=== PATIENT | male | born 2000 | race Caucasian/White ===

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

== ENCOUNTER 2019-09-22 15:37 | Emergency (ER) | payer SELFPAY ==
--- NOTE | 2019-09-22 15:58 | PDOC ---
History of Present Illness - General Chief Complaint: Cold Symptoms Stated Complaint: COLD SYMPTOMS/WEAKNESS Time Seen by Provider: 09/22/19 15:58 History Source: Patient - History of Present Illness Initial Comments: 09/22/19 16:10 Chief complaint: Cough, vomiting Patient is a healthy 19-year-old male who states he has had a cough for about a week, now has vomiting and diarrhea since yesterday. Questionable fever. Patient states she vomited at least 10 times today, diarrhea 5 times, states she urinated but unable to keep anything down. GENERAL/CONSTITUTIONAL: No fever, weakness. dizziness HEAD, EYES, EARS, NOSE AND THROAT: No change in vision. No ear pain or discharge. + sore throat. CARDIOVASCULAR: No chest pain RESPIRATORY: No shortness of breath, +cough GASTROINTESTINAL: + pain, nausea, vomiting, diarrhea GENITOURINARY: No dysuria MUSCULOSKELETAL: No neck or back pain SKIN: No rash NEUROLOGIC: No headache, vertigo, loss of consciousness, or loss of sensation. GENERAL: The patient is awake, alert, and fully oriented, in no acute distress. HEAD: Normal with no signs of trauma. EYES: Pupils equal, round and reactive to light, sclera anicteric, conjunctiva clear. ENT: pharynx: Mild erythema, no exudate, uvula midline NECK: supple CHEST: clear, nontender, rr ABD: soft, generalized tenderness, no focal tenderness, no guarding BACK: no tenderness or signs of injury EXTREMITIES: Normal range of motion, no edema. NEUROLOGICAL: Normal speech, normal gait. SKIN: Warm, Dry Past History - Past Medical History Allergies/Adverse Reactions: Allergies Allergy/AdvReac Type Severity Reaction Status Date / Time No Known Allergies Allergy Verified 11/25/16 16:59 Home Medications: Ambulatory Orders NK [No Known Home Medication] 10/21/16 - Surgical History Appendectomy: Yes - Psycho Social/Smoking Cessation Hx Smoking History: Never smoked Have you smoked in the past 12 months: No Information on smoking cessation initiated: No Hx Alcohol Use: No Drug/Substance Use Hx: No Substance Use Type: None *Physical Exam - Vital Signs Last Vital Signs Temp Pulse Resp BP Pulse Ox 98 F 76 18 130/80 100 09/22/19 15:51 09/22/19 15:51 09/22/19 15:51 09/22/19 15:51 09/22/19 15:51 ED Treatment Course - LABORATORY CBC & Chemistry Diagram: 09/22/19 16:24 09/22/19 16:24 Medical Decision Making - Medical Decision Making 09/22/19 16:11 Healthy 19-year-old male with cough for 1 week, vomiting and diarrhea for 2 days. Questionable fever, no focal tenderness on abdominal exam. Patient states he is unable to keep anything down. Will get baseline labs, chest x-ray , hydrate, Zofran and Pepcid, flu and strep swabs and reassess. Unable to do strep swab at this point due to patient not sitting still and gagging 09/22/19 18:22 Patient's labs are stable, of note creatinine is 1.2, patient is positive for flu B, strep negative. Patient getting third liter, no vomiting. Patient chest x-ray does not show pneumonia or acute issue. Patient will be stable for discharge home and supportive care Discharge - Discharge Information Problems reviewed: Yes Clinical Impression/Diagnosis: Influenza B Condition: Stable Disposition: HOME - Admission No - Follow up/Referral - Patient Discharge Instructions Patient Printed Discharge Instructions: Influenza Additional Instructions: Drink 2-3 L of water daily Take Tylenol 650 mg every 4 hours or Motrin 600 mg every 6 hours for fever and pain Return to the nearest ER if short of breath, unable to swallow or feeling sicker Followup with your doctor in one to 2 days - Post Discharge Activity Work/Back to School Note: Back to Work
[2019-09-22] MEDS ORDERED: SODIUM CHLORIDE 1,000 ML IV STA ×3 (16:06→18:09)
[2019-09-22] MEDS ORDERED: ONDANSETRON 4 MG/2 ML VIAL IVPUSH ONE (16:06)
[2019-09-22] MEDS ORDERED: FAMOTIDINE 20 MG/50 ML IVPB 20 MG/50 ML MG IVPB ONE ×2 (16:06→16:27)
[2019-09-22 16:16] VITALS: BP 125/75; PULSE 102; TEMP 100.1; BMI 28.7
[2019-09-22] MEDS ORDERED: ONDANSETRON 4 MG/2 ML VIAL ONE (16:26)
[2019-09-22] MEDS ORDERED: KETOROLAC TROMETHAMINE 30 MG/1 ML VIAL IVPUSH ONE (16:38)
[2019-09-22 16:44] LABS: BASO % 0.4 % (0-2.0); EOS % 0.1 % (0-4.5); HEMATOCRIT 49.2 % (35.4-49); HEMOGLOBIN 16.9 GM/dL (11.7-16.9); LYMPH % 10.6 % (8-40); MCH 29.2 pg (25.7-33.7); MCHC 34.3 g/dl (32.0-35.9); MEAN CELL VOLUME 85.1 fl (80-96); MEAN PLT VOLUME 7.5 fl (7.5-11.1); MONO % 15.7 % (3.8-10.2); NEUT % 73.2 % (42.8-82.8); PLATELET COUNT 209 K/MM3 (134-434); RBC 5.77 M/mm3 (4.00-5.60); RDW 13.6 % (11.9-15.9); WHITE BLOOD COUNT 8.5 K/mm3 (4.0-10.0)
[2019-09-22 17:05] LABS: ALBUMIN 4.3 g/dl (3.4-5.0); BILIRUBIN,TOTAL 0.6 mg/dL (0.2-1); BLOOD UREA NITROGEN 7.9 mg/dL (7-18); CALCIUM 8.6 mg/dL (8.5-10.1); CREATININE 1.2 mg/dL (0.55-1.3); POTASSIUM 3.7 mmol/L (3.5-5.1); TOT PROT 8.1 g/dl (6.4-8.2)
[2019-09-22] MEDS ORDERED: KETOROLAC TROMETHAMINE 30 MG/1 ML VIAL ONE (17:07)
[2019-09-22] MEDS ORDERED: ACETAMINOPHEN 325 MG TABLET (FP) PO ONE (17:34)
[2019-09-22] MEDS ORDERED: ACETAMINOPHEN 325 MG TABLET (FP) ONE (17:35)
== END 2019-09-22 18:54 | disposition home or self-care (01) ==
LOC: JERFT 15:37
PROC: 3E0337Z Introduction of Electrolytic and Water Balance Substance into Peripheral Vein, Percutaneous Approach (ICD-10-PCS; principal; 2019-09-22)
PROC: 3E033GC Introduction of Other Therapeutic Substance into Peripheral Vein, Percutaneous Approach (ICD-10-PCS; 2019-09-22)
PROC: 3E0333Z Introduction of Anti-inflammatory into Peripheral Vein, Percutaneous Approach (ICD-10-PCS; 2019-09-22)
PROC: 3E033GC Introduction of Other Therapeutic Substance into Peripheral Vein, Percutaneous Approach (ICD-10-PCS; 2019-09-22)
DX: J10.2 Influenza due to other identified influenza virus with gastrointestinal manifestations (principal)
CPT/HCPCS: 36415; 71046-TC-FY; 80053; 85025; 87070; 87804; 87880; 99284-25; J7030

== ENCOUNTER 2020-02-13 13:16 | Emergency (ER) | payer OTHER ==
--- NOTE | 2020-02-13 13:37 | PDOC ---
Rapid Medical Evaluation Chief Complaint: Headache Time Seen by Provider: 02/13/20 13:35 Medical Evaluation: Allergies Allergy/AdvReac Type Severity Reaction Status Date / Time No Known Allergies Allergy Verified 02/13/20 13:34 02/13/20 13:35 19 year old male no pmhx complaining of intermittent right sided headache without photophobia, vision changes, nausea, vomiting, fever, chills, neck pain. No DE LA VEGA in ED PE: WNL Plan: Tylenol Pt to precede to ED for further treatment and care
[2020-02-13] MEDS ORDERED: ACETAMINOPHEN 325 MG TABLET (FP) PO ONE (13:38)
[2020-02-13 13:39] VITALS: BP 124/70; PULSE 69; TEMP 98.3; BMI 34.8
--- NOTE | 2020-02-13 14:07 | PDOC ---
History of Present Illness - General Chief Complaint: Headache Stated Complaint: HEADACHE Time Seen by Provider: 02/13/20 13:35 History Source: Patient Exam Limitations: Clinical Condition - History of Present Illness Initial Comments: 02/13/20 14:09 Patient with no significant past medical history present with complaint of intermittent right-sided headache which he described as pressure around the eyes especially when he bends down which has been going on for 2 months now with intermittent nasal congestion. Reported symptoms only localized to right side of head. Denies nausea, vomiting, dizziness, blurry vision, change in vision, eye pain. Denies history of hypertension. Patient has not taken anything for symptoms. Denies any other symptoms Is this a multiple visit Asthma Patient?: No Timing/Duration: intermittent, other (2 months) Past History - Medical History Allergies/Adverse Reactions: Allergies Allergy/AdvReac Type Severity Reaction Status Date / Time No Known Allergies Allergy Verified 02/13/20 13:34 Home Medications: Ambulatory Orders Brompheniram/Phenylephrine/Dm [Tussi Pres-B Liquid] 1 dose PO ASDIR PRN #480 ml 09/22/19 Fluticasone Prop 0.05% Nasal [Flonase -] 1 - 2 spray NS BID PRN #1 spray.pump 02/13/20 Methylprednisolone [Medrol Dose Jose] 4 mg PO ASDIR #21 tablet 02/13/20 - Surgical History Appendectomy: Yes - Psycho-Social/Smoking History Smoking History: Never smoked Have you smoked in the past 12 months: No Information on smoking cessation initiated: No Review of Systems - Review of Systems Able to Perform ROS?: Yes Is the patient limited Czech proficient: No Constitutional: No: Chills, Fever, Malaise HEENTM: Yes: Symptoms Reported, See HPI, Nose Congestion. No: Eye Pain, Blurred Vision, Tearing, Recent change in vision, Double Vision, Cataracts, Ear Pain, Ocular Prothesis, Ear Discharge, Nose Pain, Tinnitus, Nose Bleeding, Hearing Loss, Throat Pain, Throat Swelling, Mouth Pain, Dental Problems, Difficulty Swallowing, Mouth Swelling, Other Respiratory: No: Symptoms reported, See HPI, Cough, Orthopnea, Shortness of Breath, SOB with Exertion, SOB at Rest, Stridor, Wheezing, Productive cough, Hemoptysis, Other Cardiac (ROS): No: Symptoms Reported, See HPI, Chest Pain, Edema, Irregular Heart Rate, Lightheadedness, Palpitations, Syncope, Chest Tightness, Other ABD/GI: No: Symptoms Reported, Nausea, Vomiting Musculoskeletal: No: Symptoms Reported Integumentary: No: Symptoms Reported Neurological: Yes: Symptoms reported, See HPI, Headache (Right-sided frontal pressure headache). No: Numbness, Paresthesia, Weakness, Dizziness All Other Systems: Reviewed and Negative *Physical Exam - Vital Signs Last Vital Signs Temp Pulse Resp BP Pulse Ox 98.3 F 69 17 124/70 97 02/13/20 13:35 02/13/20 13:35 02/13/20 13:35 02/13/20 13:35 02/13/20 13:35 - Physical Exam 02/13/20 14:12 GENERAL: Well developed, well nourished. Awake and alert. No acute distress. HEENT: Normocephalic, atraumatic. PERRLA, EOMI. No conjunctival pallor. Sclera are non- icteric. Moist mucous membranes. Oropharynx is clear. NECK: Supple. Full ROM. No JVD. Carotid pulses 2+ and symmetric, without bruits. No thyromegaly. No lymphadenopathy. CARDIOVASCULAR: Regular rate and rhythm. No murmurs, rubs, or gallops. Distal pulses are 2+ and symmetric. PULMONARY: No evidence of respiratory distress. Lungs clear to auscultation bilaterally. No wheezing, rales or rhonchi. MUSCULOSKELETAL Normal range of motion at all joints. No bony deformities or tenderness. No CVA tenderness. SKIN: Warm and dry. Normal capillary refill. No rashes. No jaundice. NEUROLOGICAL: Alert, awake, appropriate. Cranial nerves 2-12 intact. No deficits to light touch in face, upper extremities and lower extremities. No motor deficits in the in face, upper extremities and lower extremities. Normoreflexic in the upper and lower extremities. Normal speech. Gait is normal without ataxia. PSYCHIATRIC: Cooperative. Good eye contact. Appropriate mood and affect. General Appearance: Yes: Nourished, Appropriately Dressed. No: Apparent Distress ED Treatment Course - Medications Given in the ED: ED Medications Discontinued Medications Generic Name Dose Route Start Last Admin Trade Name Freq PRN Reason Stop Dose Admin Acetaminophen 650 mg 02/13/20 13:38 02/13/20 13:52 Tylenol - PO 02/13/20 13:39 650 mg ONCE ONE Administration Medical Decision Making - Medical Decision Making 02/13/20 14:10 Patient with no significant past medical history present with complaint of intermittent right-sided headache which he described as pressure around the eyes especially when he bends down which has been going on for 2 months now. Reported symptoms only localized to right side of head. Denies nausea, vomiting, dizziness, blurry vision, change in vision, eye pain. Denies history of hypertension. Patient has not taken anything for symptoms. Denies any other symptoms Clinical exam unremarkable. Normal neuro exam. Normal vitals. Patient symptoms consistent with sinus headache. Tylenol given from triage for headache. Patient stable for discharge on Flonase. For sinus congestion Medrol Jose for sinus congestion with follow-up with ENT and neurology. Patient left department without complication and stable for discharge. Discharge - Discharge Information Problems reviewed: Yes Clinical Impression/Diagnosis: Sinus headache, Sinus congestion Condition: Stable Disposition: HOME - Admission No - Additional Discharge Information Prescriptions: Fluticasone Prop 0.05% Nasal [Flonase -] 1 - 2 spray NS BID PRN #1 spray.pump PRN Reason: sinus congestion Methylprednisolone [Medrol Dose Jose] 4 mg PO ASDIR #21 tablet - Follow up/Referral Referrals: Clyde Granado [Primary Care Provider] - Alex Stanley MD [Staff Physician] - Rashel Hernandez MD [Staff Physician] - - Patient Discharge Instructions Patient Printed Discharge Instructions: DI for Sinus Headache Additional Instructions: Your headache is likely from sinus headache. Take prescribed medication as prescribed for sinusitis. Follow-up referred ENT Dr. Claudia Aguilar if symptoms persist or neurologist Dr. Mota if any symptoms of dizziness or spinning sensation - Post Discharge Activity
== END 2020-02-13 14:19 | disposition home or self-care (01) ==
LOC: JERFT 13:16
DX: R51 Headache (principal)
CPT/HCPCS: 99283-25

== ENCOUNTER 2020-08-08 17:14 | Emergency (ER) | payer OTHER ==
[2020-08-08 17:20] VITALS: TEMP 98.6; BMI 34.8
[2020-08-08 17:54] VITALS: BP 140/86; PULSE 106
== END 2020-08-08 18:10 | disposition home or self-care (01) ==
LOC: JERFT 17:14
DX: L05.01 Pilonidal cyst with abscess (principal)
CPT/HCPCS: 99283-25

== ENCOUNTER 2020-08-15 12:35 | Emergency (ER) | payer OTHER ==
[2020-08-15 12:41] VITALS: BP 124/82; PULSE 98; TEMP 98.3; BMI 33.5
== END 2020-08-15 13:12 | disposition home or self-care (01) ==
LOC: JERFT 12:35
PROC: 0H98XZZ Drainage of Buttock Skin, External Approach (ICD-10-PCS; principal; 2020-08-15)
DX: L02.31 Cutaneous abscess of buttock (principal)
CPT/HCPCS: 87070; 87076; 87205; 99282-25

== ENCOUNTER 2024-10-23 16:50 | Emergency (ER) | payer SELFPAY ==
[2024-10-23 16:56] VITALS: BP 120/90; PULSE 90; RESP 18; TEMP 97.8; BMI 36.2
== END 2024-10-23 18:05 | disposition home or self-care (01) ==
LOC: JERFT 16:50 → JER 16:50 → JERFT 18:05
DX: H00.15 Chalazion left lower eyelid (principal)
CPT/HCPCS: 99283-25